=== PATIENT | female | born 1995 | race Caucasian/White ===

== ENCOUNTER 2021-12-15 15:54 | Emergency (ER) | payer OTHER ==
[~2021-12-15] VITALS: Ht 167.6 cm; Wt 122.0 kg
[2021-12-15] MEDS ORDERED: MEDROLPACK PO (20:26)
[2021-12-15] MEDS ORDERED: PROAIR RESPICL90 MCG IH (20:26)
[2021-12-15] MEDS ORDERED: ZITHROMAX500 MG PO (20:26)
[2021-12-15] MEDS ORDERED: TUSNEL LIQUID178 ML PO (20:26)
== END 2021-12-15 21:19 | disposition home or self-care (01) ==
LOC: ER 15:54
DX: U07.1 COVID-19 (principal); B34.9 Viral infection, unspecified; A08.39 Other viral enteritis

== ENCOUNTER 2023-01-03 19:37 | Emergency (ER) | payer OTHER ==
[~2023-01-03] VITALS: Ht 167.6 cm; Wt 116.6 kg
[~2023-01-03 19:37] MED LIST: MEDROLPACK PO; PROAIR RESPICL90 MCG IH; TUSNEL LIQUID178 ML PO; ZITHROMAX500 MG PO
== END 2023-01-03 23:25 | disposition home or self-care (01) ==
LOC: ER 19:37
DX: J06.9 Acute upper respiratory infection, unspecified (principal); Z20.822 Contact with and (suspected) exposure to COVID-19